=== PATIENT | female | born 1960 ===

== ENCOUNTER 2018-05-10 20:40 | Inpatient (IN) | payer OTHER ==
[2018-05-10] MEDS ORDERED: Sodium Chloride 0.9% 1,000 ML IV STA (22:01)
[2018-05-10] MEDS ORDERED: Iohexol 240 (50 ml) PO ONE (22:01)
--- NOTE | 2018-05-10 22:03 | ED PDOC ---
HPI: Abdomen Time Seen by Provider: 05/10/18 20:58 Chief Complaint (Nursing): Abdominal Pain Chief Complaint (Provider): Abdominal Pain History Per: Patient History/Exam Limitations: no limitations Onset/Duration Of Symptoms: Days (x4) Associated Symptoms: Nausea. denies: Fever, Vomiting, Diarrhea Additional Complaint(s): 58 year old female presents to the ED complaining of abdominal pain which began on Monday. Patient rates pain an 8/10. She reports she was hospitalized before for pain in the same area and was given medications and discharged. She reports having nausea and denies fever, vomiting, and diarrhea. PMD: Dr. Milner Past Medical History Reviewed: Historical Data, Nursing Documentation, Vital Signs Vital Signs: Last Vital Signs Temp 98.9 F 05/10/18 21:05 Pulse 93 H 05/10/18 21:05 Resp 18 05/10/18 21:05 BP 137/81 05/10/18 21:05 Pulse Ox 98 05/10/18 21:05 - Medical History PMH: Asthma Other PMH: Glaucoma - Surgical History Surgical History: Hernia Repair, Other surgeries: Hysterectomy; tendonitis surgery - Family History Family History: States: Unknown Family Hx - Social History Current smoker - smoking cessation education provided: No Alcohol: None Drugs: Denies - Immunization History Hx Tetanus Toxoid Vaccination: Yes Hx Influenza Vaccination: Yes Hx Pneumococcal Vaccination: Yes - Home Medications Home Medications: Ambulatory Orders Medication Instructions Recorded Budesonide/Formoterol Fumarate 1 aer IH DAILY 10/19/17 [Symbicort 160-4.5 Mcg Inhaler] Fluticasone/Vilanterol [Breo 1 each IH DAILY 10/19/17 Ellipta 200-25 Mcg INH] Proventil Hfa 1 inh INH Q6H 10/19/17 Cetirizine HCl [Zyrtec] 10 mg PO DAILY 10/31/17 Montelukast Sodium [Singulair] 10 mg PO DAILY 10/31/17 Ciprofloxacin [Cipro] 500 mg PO Q12 14 Days #28 tab 05/14/18 Isoniazid [Niazid] 300 mg PO DAILY tab 05/14/18 Lactobacillus Acidophilus 1 each PO DAILY #14 capsule 05/14/18 [Acidophilus Lactobacilli] Pyridoxine [Vitamin B6 50 mg Tab] 50 mg PO DAILY tab 05/14/18 metroNIDAZOLE [Flagyl] 500 mg PO Q12 14 Days #28 tab 05/14/18 - Allergies Allergies/Adverse Reactions: Allergies Allergy/AdvReac Type Severity Reaction Status Date / Time No Known Allergies Allergy Verified 05/10/18 21:04 Review of Systems ROS Statement: Except As Marked, All Systems Reviewed And Found Negative Constitutional: Negative for: Fever Gastrointestinal: Positive for: Nausea, Abdominal Pain. Negative for: Vomiting, Diarrhea Physical Exam - Reviewed Nursing Documentation Reviewed: Yes Vital Signs Reviewed: Yes - Physical Exam Appears: Positive for: In Acute Distress (Painful distress) Head Exam: Positive for: ATRAUMATIC, NORMOCEPHALIC Skin: Positive for: Normal Color, Warm, Dry Eye Exam: Positive for: Normal appearance ENT: Positive for: Normal ENT Inspection Neck: Positive for: Normal, Painless ROM Cardiovascular/Chest: Positive for: Regular Rate, Rhythm Respiratory: Positive for: Normal Breath Sounds. Negative for: Wheezing, Respiratory Distress Gastrointestinal/Abdominal: Positive for: Tenderness (LLQ), Guarding Extremity: Positive for: Normal ROM Neurological/Psych: Positive for: Awake, Alert, Normal Tone - Laboratory Results Result Diagrams: 05/14/18 06:50 05/14/18 06:50 - ECG O2 Sat by Pulse Oximetry: 98 (RA) Pulse Ox Interpretation: Normal Medical Decision Making Medical Decision Making: Initial Impression: r/o diverticulitis, electrolyte abnormality, UTI Initial Plan: --CT abd/pelvis --CMP --CBC --Morphine 4mg IV --Sodium chloride 1000mL IV --Omnipaque 50mL PO --Zofran 4mg IV --Urine culture --Urinalysis 01:49 CT abd/pelvis COMMENTS: Uncomplicated acute diverticulitis of the proximal sigmoid colon without perforation or abscess formation. Surrounding prominent phlegmonous changes and free fluid without drainable collection. Mild constipation. Prior hysterectomy. Bilateral fat containing inguinal hernias without incarceration. The liver is of uniform attenuation without mass or defect. There is no intra or extrahepatic biliary ductal dilatation. The spleen is normal. The gallbladder is within normal limits. The pancreas is of normal contour and attenuation characteristics. There is no evidence of adrenal mass. Both kidneys demonstrate prompt and equal nephrograms. The kidneys are normal in size, shape and configuration. There is no evidence of renal or ureteral mass. No renal or ureteral calculi are identified. There is no hydroureter or hydronephrosis. No evidence for appendicitis. There is no small bowel wall thickening. No evidence for small or large bowel obstruction. There is no evidence of intrinsic or extrinsic bladder mass. Images of the lung bases show no evidence of pleural or parenchymal mass. There are no pleural effusions. The bony structures are free of lytic or blastic lesions. IMPRESSION: Uncomplicated acute diverticulitis of the proximal sigmoid colon without perforation or abscess formation. Surrounding prominent phlegmonous changes and free fluid without drainable collection. Mild constipation. Prior hysterectomy. Bilateral fat containing inguinal hernias without incarceration. 03:50 Patient will be admitted to the hospitalist for diverticulitis. Spoke to Dr. House who accepted. abx ordered pt aware gi, surgery consults Scribe Attestation: Documented by Daquan Hill acting as a scribe for Víctor Ochoa MD. Provider Scribe Attestation: All medical record entries made by the Scribe were at my direction and personally dictated by me. I have reviewed the chart and agree that the record accurately reflects my personal performance of the history, physical exam, medical decision making, and the department course for this patient. I have also personally directed, reviewed, and agree with the discharge instructions and disposition. Disposition - Clinical Impression Clinical Impression: Diverticulitis large intestine - Patient ED Disposition Is Patient to be Admitted: Yes Counseled Patient/Family Regarding: Studies Performed, Diagnosis - Disposition Disposition Time: 03:45 Condition: STABLE
[2018-05-10] MEDS ORDERED: Iohexol 240 (50 ml) ONE (22:27)
[2018-05-10] MEDS ORDERED: Morphine 4 MG/ML VIAL ONE (22:27)
[2018-05-10 22:53] LABS: BASO % 0.2 % (0.0-2.0); EOS % 0.6 % (0.0-4.0); HEMOGLOBIN 13.8 g/dL (12.0-16.0); LYMPH # 2.6 K/uL (1.0-4.3); MEAN CELL VOLUME 91.1 fl (81.0-99.0); MEAN CORPUSCULAR HEMOGLOBIN 29.8 pg (27.0-31.0); MEAN CORPUSCULAR HGB CONC 32.7 g/dL (33.0-37.0); MEAN PLATELET VOLUME 8.9 fl (7.2-11.7); MONO # 0.7 K/uL (0.0-0.8); MONO % 8.3 % (0.0-10.0); NEUT # 4.5 K/uL (1.8-7.0); NEUT % 57.9 % (50.0-75.0); RBC 4.62 Mil/uL (3.80-5.20); RED CELL DISTRIBUTION WIDTH 13.7 % (11.5-14.5); WHITE BLOOD COUNT 7.8 K/uL (4.8-10.8)
[2018-05-10 23:09] LABS: ALB/GLOB RATIO 1.3 (1.0-2.1); ALBUMIN 4.4 g/dL (3.5-5.0); ALT/SGPT 41 U/L (9-52); AST/SGOT 44 U/L (14-36); BLOOD UREA NITROGEN 16 mg/dl (7-17); CALCIUM 9.2 mg/dL (8.4-10.2); GFR NON-AFRICAN AMERICAN > 60
[2018-05-11] MEDS ORDERED: Sodium Chloride 0.9% 50 ML IV ONE (00:29)
[2018-05-11] MEDS ORDERED: Iohexol 300 100 ML IJ ONE (00:30)
[2018-05-11 01:14] LABS: SQUAMOUS EPITHIAL 2 /hpf (0-5); URINE BACTERIA OCC (<OCC); URINE BILIRUBIN NEGATIVE (NEGATIVE); URINE BLOOD NEGATIVE (NEGATIVE); URINE CLARITY CLEAR (Clear); URINE COLOR STRAW (YELLOW); URINE GLUCOSE (UA) NEG (NEGATIVE); URINE LEUKOCYTE ESTERASE SMALL Leu/uL (Negative); URINE PROTEIN NEGATIVE (NEGATIVE); URINE UROBILINOGEN 0.2-1.0 mg/dL (0.2-1.0)
[2018-05-11] MEDS ORDERED: Morphine 4 MG/ML VIAL IV ONE (02:31)
[2018-05-11] MEDS ORDERED: Morphine 4 MG/ML VIAL ONE (02:39)
[2018-05-11] MEDS ORDERED: Piperacillin/Tazobact 4.5 GM in Sodium Chloride 0.9% 100 ML IVPB STA (03:49)
--- NOTE | 2018-05-11 04:38 | CP.PCM.HP ---
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 Patient reports LLQ abdominal pain started 5 days ago progressively worse for last 2 days. Patient reports pain as constant, 8/10, radiates to upper abdomen and back, worse with walking/body movement associated with nausea, subjective fever and chills that started today. Patient reports she had colonoscopy done in [place] about a year ago and states colonoscopy report was normal. Denies any hx similar symptoms in the past. Patient also reports dysuria x 5 days. Denies any constipation, diarrhea, dysuria or dizziness. Denies any chest pain, cough o r dyspnea. ROS: All 12 systems reviewed and negative except as mentioned in HPI PMD: [facility] PMHx: asthma, allergic rhinitis, positive PPD (on INH), GERD, HLD Surgical hx: hysterectomy, hernia repair, and Right shoulder tendon repair Social hx: Denies smoking cigarettes, drinking EtOH or using drugs Family hx: Father: pancreatic CA at age 88, Mother: heart attack at age 83 Allergies: NKDA Medications: reviewed Present on Admission - Present on Admission Any Indicators Present on Admission: No Review of Systems - Review of Systems Review of Systems: ROS: All 12 systems reviewed and negative except as mentioned in HPI Past Patient History - Past Social History Alcohol: None Drugs: Denies - PULMONARY Hx Asthma: Yes - HEENT Hx Glaucoma: Yes - PSYCHIATRIC Hx Substance Use: No - SURGICAL HISTORY Hx Section: Yes (X3) Hx Herniorrhaphy: Yes Hx Hysterectomy: Yes Hx Orthopedic Surgery: Yes (RT SHOULDER) - ANESTHESIA Hx Anesthesia: Yes Hx Anesthesia Reactions: No Meds Allergies/Adverse Reactions: Allergies Allergy/AdvReac Type Severity Reaction Status Date / Time No Known Allergies Allergy Verified 05/10/18 21:04 Physical Exam - Constitutional Appears: Non-toxic Additional comments: mild distress due to pain - Head Exam Head Exam: NORMAL INSPECTION - Eye Exam Eye Exam: Normal appearance - ENT Exam ENT Exam: Mucous Membranes Moist - Neck Exam Neck exam: Positive for: Normal Inspection - Respiratory Exam Respiratory Exam: Clear to Auscultation Bilateral, NORMAL BREATHING PATTERN. absent: Rhonchi, Wheezes - Cardiovascular Exam Cardiovascular Exam: REGULAR RHYTHM, +S1, +S2 - GI/Abdominal Exam GI & Abdominal Exam: Normal Bowel Sounds, Soft. absent: Distended, Rigid Additional comments: Moderate localized tenderness in LLQ with +guarding and rebound tenderness. Vertical lower abdominal mid incision scar - Extremities Exam Extremities exam: Positive for: normal inspection. Negative for: calf tenderness - Back Exam Back exam: NORMAL INSPECTION. absent: CVA tenderness (L), CVA tenderness (R) - Neurological Exam Neurological exam: Alert, Oriented x3 - Psychiatric Exam Psychiatric exam: Anxious - Skin Skin Exam: Normal Color Results - Vital Signs Recent Vital Signs: Last Vital Signs Temp 98.9 F 05/10/18 21:05 Pulse 93 H 05/10/18 21:05 Resp 18 05/10/18 21:05 BP 137/81 05/10/18 21:05 Pulse Ox 98 05/11/18 04:04 - Labs Result Diagrams: 05/10/18 22:44 05/10/18 22:44 Labs: Laboratory Results - last 24 hr 05/10/18 05/10/18 05/11/18 22:44 22:44 00:40 WBC 7.8 RBC 4.62 Hgb 13.8 Hct 42.1 MCV 91.1 MCH 29.8 MCHC 32.7 L RDW 13.7 Plt Count 196 MPV 8.9 Neut % (Auto) 57.9 Lymph % (Auto) 33.0 [place] % (Auto) 8.3 Eos % (Auto) 0.6 Baso % (Auto) 0.2 Neut # (Auto) 4.5 Lymph # (Auto) 2.6 [place] # (Auto) 0.7 Eos # (Auto) 0.0 Baso # (Auto) 0.0 Sodium 141 Potassium 4.0 Chloride 101 Carbon Dioxide 29 Anion Gap 15 BUN 16 Creatinine 0.7 Est GFR ( Amer) > 60 Est GFR (Non-Af Amer) > 60 Random Glucose 111 H Calcium 9.2 Total Bilirubin 0.3 AST 44 H D ALT 41 Alkaline Phosphatase 82 Total Protein 7.7 Albumin 4.4 Globulin 3.3 Albumin/Globulin Ratio 1.3 Urine Color Straw Urine Clarity Clear Urine pH 8.0 Ur Specific [place] 1.006 Urine Protein Negative Urine Glucose (UA) Neg Urine Ketones Negative Urine Blood Negative Urine Nitrate Negative Urine Bilirubin Negative Urine Urobilinogen 0.2-1.0 Ur Leukocyte Esterase Small Urine RBC (Auto) 1 Urine Microscopic WBC 6 H Ur Squamous Epith Cells 2 Urine Bacteria Occ H Assessment & Plan - Assessment and Plan (Free Text) Assessment: 58 year old male with PMHx of asthma, allergic rhinitis, 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 Patient reports LLQ abdominal pain started 5 days ago progressively worse last 2 days. Patient reports pain as constant, 8/10, radiates to upper abdomen and back, worse with walking/body movement associated with nausea, subjective fever and chills that started today. In the ED, CT abdomen and pelvis shows uncomplicated acute diverticulitis of the proximal sigmoid colon without perforation or abscess formation. Surrounding prominent phlegmonous changes and free fluid without drainable collection. Patient is admitted for management of diverticulitis. Plan: Acute diverticulitis with phlegmonous changes -Afebrile with stable vitals -Wbc 7.8 -s/p NS 1 L and Zosyn 4.5 mg in ED -General surgery consultDr. Musaf/u recs -GI consult Dr. Latham f/u recs -c/w Zosyn 3.375 mg q 6 hr -NPO -anti-emetics -Pain management with morphine 2 mg and 4 mg -start LR @ 125 cc/hr -f/u labs Mild intermittent asthma -c/w symbicort -duoneb q4h prn Hx positive PPD -CXR on 01/23/18 : no acute cardiopulmonary disease -Will resume INH 300 mg po daily with pyridoxine 50 mg daily when diet is advanced DVT prophylaxis -Lovenox 40 mg sc daily Patient seen, examined and plan discussed with Dr. Harsh Simpson, PGY-2 <Curtis House - Last Filed: 05/11/18 07:37> Results - Vital Signs Recent Vital Signs: Last Vital Signs Temp 98.9 F 05/11/18 06:33 Pulse 74 05/11/18 06:33 Resp 17 05/11/18 06:33 BP 99/55 L 05/11/18 06:33 Pulse Ox 98 05/11/18 05:05 - Labs Result Diagrams: 05/10/18 22:44 05/10/18 22:44 Labs: Laboratory Results - last 24 hr 05/10/18 05/10/18 05/11/18 22:44 22:44 00:40 WBC 7.8 RBC 4.62 Hgb 13.8 Hct 42.1 MCV 91.1 MCH 29.8 MCHC 32.7 L RDW 13.7 Plt Count 196 MPV 8.9 Neut % (Auto) 57.9 Lymph % (Auto) 33.0 [place] % (Auto) 8.3 Eos % (Auto) 0.6 Baso % (Auto) 0.2 Neut # (Auto) 4.5 Lymph # (Auto) 2.6 [place] # (Auto) 0.7 Eos # (Auto) 0.0 Baso # (Auto) 0.0 Sodium 141 Potassium 4.0 Chloride 101 Carbon Dioxide 29 Anion Gap 15 BUN 16 Creatinine 0.7 Est GFR ( Amer) > 60 Est GFR (Non-Af Amer) > 60 Random Glucose 111 H Calcium 9.2 Total Bilirubin 0.3 AST 44 H D ALT 41 Alkaline Phosphatase 82 Total Protein 7.7 Albumin 4.4 Globulin 3.3 Albumin/Globulin Ratio 1.3 Urine Color Straw Urine Clarity Clear Urine pH 8.0 Ur Specific [place] 1.006 Urine Protein Negative Urine Glucose (UA) Neg Urine Ketones Negative Urine Blood Negative Urine Nitrate Negative Urine Bilirubin Negative Urine Urobilinogen 0.2-1.0 Ur Leukocyte Esterase Small Urine RBC (Auto) 1 Urine Microscopic WBC 6 H Ur Squamous Epith Cells 2 Urine Bacteria Occ H Attending/Attestation - Attestation I have personally seen and examined this patient.: Yes I have fully participated in the care of the patient.: Yes I have reviewed all pertinent clinical information: Yes Notes (Text): 05/11/18 07:32 I saw, examined and discussed this patient with Dr Simpson. I agree with the assessment and plan outlined. This is a 58 years old female who comes with left lower quadrant abdominal pain, shown on CT of abdomen/pelvis to be Acute Diverticulitis. She will be treated conservatively with nothing by mouth, Pain management, IV Fluids, Antibiotic Zosyn. Consult Gastroenterology and Surgery. Curtis House MD 05/11/18 07:36
[2018-05-11] MEDS ORDERED: Morphine 4 MG/ML VIAL IVP PRN (04:43)
[2018-05-11] MEDS ORDERED: Albuterol-Ipratrop 3 mg / 0.5 (3 ml) UD INH PRN (04:47)
[2018-05-11] MEDS: Lactated Ringer's 1,000 ML IV SCH ×3 (05:00→20:16)
[2018-05-11] MEDS: Fluticasone-Salmeterol 250-50mcg Diskus IH SCH ×2 (08:45→20:14)
[2018-05-11] MEDS ORDERED: Patient's Own Med (Budesonide/Formoterol Fumarate [Symbicort 160-4.5 Mcg Inhaler] 1 AER) IH SCH (09:00)
--- NOTE | 2018-05-11 09:37 | CP.PCM.PN ---
Subjective - Date & Time of Evaluation Date of Evaluation: 05/11/18 Time of Evaluation: 09:05 - Subjective Subjective: Patient seen and examined at bedside this morning, in NAD. Patient c/o LLQ abdominal pain reaching up to 8/10 with some radiation to the back, tenderness to touch on the area, also c/o some nausea, denies BELLE or fever. Pt endorses tenesmus, had last BM yesterday. Overall patient reports mild improvement from yesterday and states her pain is getting controlled when she takes medication. Objective - Vital Signs/Intake and Output Vital Signs (last 24 hours): Temp Pulse Resp BP Pulse Ox 98.1 F 71 18 101/65 96 05/11/18 08:17 05/11/18 08:17 05/11/18 08:17 05/11/18 08:17 05/11/18 08:17 - Medications Medications: Current Medications Albuterol/Ipratropium (Duoneb 3 Mg/0.5 Mg (3 Ml) Ud) 3 ml INH RQ4 PRN PRN Reason: Shortness of Breath Enoxaparin Sodium (Lovenox) 40 mg SC DAILY SAMANTHA; Protocol Lactated Ringer's (Lactated Ringer's) 1,000 mls @ 125 mls/hr IV .Q8H SAMANTHA Last Admin: 05/11/18 05:00 Dose: 125 mls/hr Piperacillin Sod/Tazobactam (Sod 3.375 gm/ Sodium Chloride) 100 mls @ 100 mls/hr IVPB Q6 SAMANTHA; Protocol Morphine Sulfate (Morphine) 2 mg IVP Q4 PRN PRN Reason: Pain, moderate (4-7) Morphine Sulfate (Morphine) 4 mg IVP Q4 PRN PRN Reason: Pain, severe (8-10) Last Admin: 05/11/18 08:44 Dose: 4 mg Ondansetron HCl (Zofran Inj) 4 mg IVP Q6 PRN PRN Reason: Nausea/Vomiting Last Admin: 05/11/18 08:44 Dose: 4 mg Fluticasone/Salmeterol (Advair Diskus 250/50) 1 puff IH Q12 SAMANTHA Last Admin: 05/11/18 08:45 Dose: 1 puff - Labs Labs: 05/10/18 22:44 05/10/18 22:44 - Constitutional Appears: No Acute Distress - Head Exam Head Exam: ATRAUMATIC, NORMOCEPHALIC - Eye Exam Eye Exam: EOMI - ENT Exam ENT Exam: Mucous Membranes Moist - Respiratory Exam Respiratory Exam: Clear to Ausculation Bilateral - Cardiovascular Exam Cardiovascular Exam: REGULAR RHYTHM - GI/Abdominal Exam GI & Abdominal Exam: Guarding, Soft, Tenderness, Normal Bowel Sounds Additional comments: tenderness with some guarding to palpation of LLQ - Neurological Exam Neurological Exam: Alert, Oriented x3 - Psychiatric Exam Psychiatric exam: Normal Affect - Skin Skin Exam: Normal Color, Warm Assessment and Plan - Assessment and Plan (Free Text) Assessment: 58 year old female with PMH of asthma, allergic rhinitis, 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 Patient reports LLQ abdominal pain started 5 days ago progressively worse in the last 2 days. Patient reports pain as constant, 8/10, radiates to the back, worse with walking/body movement associated with nausea, and chills that started today. In the ED, CT abdomen and pelvis shows uncomplicated acute diverticulitis of the proximal sigmoid colon without perforation or abscess formation. Surrounding prominent phlegmonous changes and free fluid without drainable collection. Patient is admitted for management of diverticulitis. Plan: Acute diverticulitis with phlegmonous changes -Afebrile with stable vitals -Wbc 7.8 -s/p NS 1 L and Zosyn 4.5 mg in ED -General surgery consultDr. Musaf/u recs -GI consult Dr. Latham f/u recs -c/w Zosyn 3.375 mg q 6 hr -NPO -anti-emetics -Pain management with morphine 2 mg and 4 mg -start LR @ 125 cc/hr -f/u labs Mild intermittent asthma -c/w symbicort -duoneb q4h prn Hx positive PPD -CXR on 01/23/18 : no acute cardiopulmonary disease -Will resume INH 300 mg po daily with pyridoxine 50 mg daily when diet is advanced DVT prophylaxis -Lovenox 40 mg sc daily
--- NOTE | 2018-05-11 10:04 | CP.PCM.CON ---
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 Patient reports pain started 5 days ago. She states that it progressively worsened for last 2 days. She states that she may have had pain like this in past but is unsure. She rates pain as severe. She describes pain as constant and sharp locates in LLQ with radiation to left flank. Admits to associated nausea and subjective fever/chills but denies vomiting or diarrhea. Walking and movement aggravates her symptoms while nothing specifically alleviates them. Patient reports she had a normal colonoscopy done in [place] about a year ago. Patient also admits dysuria. Denies any chest pain, cough, SOB, hematochezia, melena, constipation. PMD: [facility] PMH: asthma, allergic rhinitis, positive PPD (on INH), GERD, HLD PSH: KISHAN with BSO, hernia repair, x 3 and Right shoulder tendon repair Social: Denies tobbaco/EtOH/illicit drug use FH: Father: pancreatic CA at age 88, Mother: heart attack at age 83 Allergies: NKDA Review of Systems - Review of Systems All systems: reviewed and no additional remarkable complaints except (as per HPI) Past Patient History - Past Social History Alcohol: None Drugs: Denies - PULMONARY Hx Asthma: Yes - HEENT Hx Glaucoma: Yes - PSYCHIATRIC Hx Substance Use: No - SURGICAL HISTORY Hx Section: Yes (X3) Hx Herniorrhaphy: Yes Hx Hysterectomy: Yes Hx Orthopedic Surgery: Yes (RT SHOULDER) - ANESTHESIA Hx Anesthesia: Yes Hx Anesthesia Reactions: No Meds Allergies/Adverse Reactions: Allergies Allergy/AdvReac Type Severity Reaction Status Date / Time No Known Allergies Allergy Verified 05/10/18 21:04 - Medications Medications: Current Medications Albuterol/Ipratropium (Duoneb 3 Mg/0.5 Mg (3 Ml) Ud) 3 ml INH RQ4 PRN PRN Reason: Shortness of Breath Enoxaparin Sodium (Lovenox) 40 mg SC DAILY SAMANTHA; Protocol Lactated Ringer's (Lactated Ringer's) 1,000 mls @ 125 mls/hr IV .Q8H SAMANTHA Last Admin: 05/11/18 05:00 Dose: 125 mls/hr Piperacillin Sod/Tazobactam (Sod 3.375 gm/ Sodium Chloride) 100 mls @ 100 mls/hr IVPB Q6 SAMANTHA; Protocol Morphine Sulfate (Morphine) 2 mg IVP Q4 PRN PRN Reason: Pain, moderate (4-7) Morphine Sulfate (Morphine) 4 mg IVP Q4 PRN PRN Reason: Pain, severe (8-10) Last Admin: 05/11/18 08:44 Dose: 4 mg Ondansetron HCl (Zofran Inj) 4 mg IVP Q6 PRN PRN Reason: Nausea/Vomiting Last Admin: 05/11/18 08:44 Dose: 4 mg Fluticasone/Salmeterol (Advair Diskus 250/50) 1 puff IH Q12 SAMANTHA Last Admin: 05/11/18 08:45 Dose: 1 puff Physical Exam - Constitutional Appears: Non-toxic, No Acute Distress - Head Exam Head Exam: ATRAUMATIC, NORMOCEPHALIC - Eye Exam Eye Exam: EOMI, Normal appearance Pupil Exam: PERRL - ENT Exam ENT Exam: Mucous Membranes Moist - Neck Exam Neck exam: Positive for: Full Rom - Respiratory Exam Respiratory Exam: NORMAL BREATHING PATTERN - Cardiovascular Exam Cardiovascular Exam: REGULAR RHYTHM - GI/Abdominal Exam GI & Abdominal Exam: Normal Bowel Sounds, Soft, Tenderness (LLQ, moderate to severe). absent: Distended, Firm, Guarding, Hernia, Rebound, Rigid Additional comments: well healed infraumbilical midline scar - Rectal Exam Rectal Exam: Deferred - Extremities Exam Extremities exam: Positive for: normal capillary refill, pedal pulses present. Negative for: calf tenderness - Back Exam Back exam: absent: CVA tenderness (L), CVA tenderness (R) - Neurological Exam Neurological exam: Alert, Normal Gait, Oriented x3 - Psychiatric Exam Psychiatric exam: Normal Affect, Normal Mood - Skin Skin Exam: Dry, Intact, Normal Color, Warm Results - Vital Signs Recent Vital Signs: Last Vital Signs Temp 98.1 F 05/11/18 08:17 Pulse 71 05/11/18 08:17 Resp 18 05/11/18 08:17 BP 101/65 05/11/18 08:17 Pulse Ox 96 05/11/18 08:17 - Labs Result Diagrams: 05/10/18 22:44 05/10/18 22:44 Labs: Laboratory Results - last 24 hr 05/10/18 05/10/18 05/11/18 22:44 22:44 00:40 WBC 7.8 RBC 4.62 Hgb 13.8 Hct 42.1 MCV 91.1 MCH 29.8 MCHC 32.7 L RDW 13.7 Plt Count 196 MPV 8.9 Neut % (Auto) 57.9 Lymph % (Auto) 33.0 [place] % (Auto) 8.3 Eos % (Auto) 0.6 Baso % (Auto) 0.2 Neut # (Auto) 4.5 Lymph # (Auto) 2.6 [place] # (Auto) 0.7 Eos # (Auto) 0.0 Baso # (Auto) 0.0 Sodium 141 Potassium 4.0 Chloride 101 Carbon Dioxide 29 Anion Gap 15 BUN 16 Creatinine 0.7 Est GFR ( Amer) > 60 Est GFR (Non-Af Amer) > 60 Random Glucose 111 H Calcium 9.2 Total Bilirubin 0.3 AST 44 H D ALT 41 Alkaline Phosphatase 82 Total Protein 7.7 Albumin 4.4 Globulin 3.3 Albumin/Globulin Ratio 1.3 Urine Color Straw Urine Clarity Clear Urine pH 8.0 Ur Specific [place] 1.006 Urine Protein Negative Urine Glucose (UA) Neg Urine Ketones Negative Urine Blood Negative Urine Nitrate Negative Urine Bilirubin Negative Urine Urobilinogen 0.2-1.0 Ur Leukocyte Esterase Small Urine RBC (Auto) 1 Urine Microscopic WBC 6 H Ur Squamous Epith Cells 2 Urine Bacteria Occ H - Imaging and Cardiology CT scan - abdomen Status: Image reviewed by me, Report reviewed by me Additional comment: CT abd/pelvis Assessment & Plan - Assessment and Plan (Free Text) Assessment: 58 F with PMH of asthma, allergic rhinnitis, Latent TB on INH until June and glaucoma presents with sigmoid diverticulitis Plan: -NPO -IVF -IV ABX -Analgesics/Anti-emetics PRN -Serial abd exams -Strict I's & O's -Monitor vitals -Discussed with Dr. Musa - Date & Time Date: 05/11/18 Time: 10:02
[2018-05-11] MEDS: Piperacillin/Tazobact 3.375 GM in Sodium Chloride 0.9% 100 ML IVPB SCH ×3 (10:50→21:11)
--- NOTE | 2018-05-11 12:06 | CT ---
Date of service: 05/11/2018 PROCEDURE: CT Abdomen and Pelvis with contrast HISTORY: Left lower quadrant abdominal pain. COMPARISON: None. TECHNIQUE: Intravenous contrast dose: 90 cc Omnipaque 300. Radiation dose: Total exam DLP = 325.27 mGy-cm. This CT exam was performed using one or more of the following dose reduction techniques: Automated exposure control, adjustment of the mA and/or kV according to patient size, and/or use of iterative reconstruction technique. FINDINGS: LOWER THORAX: Unremarkable. LIVER: Unremarkable. No gross lesion or ductal dilatation. GALLBLADDER AND BILE DUCTS: Unremarkable. PANCREAS: Unremarkable. No gross lesion or ductal dilatation. SPLEEN: Unremarkable. ADRENALS: Unremarkable. No mass. KIDNEYS AND URETERS: Unremarkable. No hydronephrosis. No solid mass. VASCULATURE: Unremarkable. No aortic aneurysm. No atherosclerotic calcification or mural plaque present. BOWEL: Sigmoid diverticulitis, acute. Micro perforations are present. No drainable collection, free air or free fluid noted. Extensive diverticular disease identified proximal and distal to the sigmoid diverticulitis. APPENDIX: Normal appendix. PERITONEUM: Unremarkable. No free fluid. No free air. LYMPH NODES: Unremarkable. No enlarged lymph nodes. BLADDER: Unremarkable. REPRODUCTIVE: Unremarkable. BONES: No acute fracture. OTHER FINDINGS: None. IMPRESSION: Acute sigmoid diverticulitis. Micro perforations identified. No free air, free fluid, loculated fluid or drainable collection. Concordant results (preliminary interpretation) provided by [facility]. Procedure Completed: 00:45. Preliminary Report: Interpreted and electronically signed: 01:45. Final Interpretation: 11:59.
--- NOTE | 2018-05-11 14:48 | CP.PCM.CON ---
History of Present Illness - History of Present Illness History of Present Illness: 58 yo female presenting to ER with 3 days of intense abdominal pain severity about 8/10. Review of Systems - Constitutional Constitutional: absent: Chills - EENT Eyes: absent: Blurred Vision Nose/Mouth/Throat: absent: Epistaxis - Cardiovascular Cardiovascular: absent: Chest Pain - Respiratory Respiratory: absent: Dyspnea - Gastrointestinal Gastrointestinal: As Per HPI - Genitourinary Genitourinary: absent: Change in Urinary Stream Past Patient History - Past Social History Alcohol: None Drugs: Denies - PULMONARY Hx Asthma: Yes - HEENT Hx Glaucoma: Yes - PSYCHIATRIC Hx Substance Use: No - SURGICAL HISTORY Hx Section: Yes (X3) Hx Herniorrhaphy: Yes Hx Hysterectomy: Yes Hx Orthopedic Surgery: Yes (RT SHOULDER) - ANESTHESIA Hx Anesthesia: Yes Hx Anesthesia Reactions: No Meds Allergies/Adverse Reactions: Allergies Allergy/AdvReac Type Severity Reaction Status Date / Time No Known Allergies Allergy Verified 05/10/18 21:04 - Medications Medications: Current Medications Albuterol/Ipratropium (Duoneb 3 Mg/0.5 Mg (3 Ml) Ud) 3 ml INH RQ4 PRN PRN Reason: Shortness of Breath Enoxaparin Sodium (Lovenox) 40 mg SC DAILY [facility]; Protocol Lactated Ringer's (Lactated Ringer's) 1,000 mls @ 125 mls/hr IV .Q8H [facility] Last Admin: 05/11/18 05:00 Dose: 125 mls/hr Piperacillin Sod/Tazobactam (Sod 3.375 gm/ Sodium Chloride) 100 mls @ 100 mls/hr IVPB Q6 [facility]; Protocol Last Admin: 05/11/18 10:50 Dose: 100 mls/hr Morphine Sulfate (Morphine) 2 mg IVP Q4 PRN PRN Reason: Pain, moderate (4-7) Morphine Sulfate (Morphine) 4 mg IVP Q4 PRN PRN Reason: Pain, severe (8-10) Last Admin: 05/11/18 08:44 Dose: 4 mg Ondansetron HCl (Zofran Inj) 4 mg IVP Q6 PRN PRN Reason: Nausea/Vomiting Last Admin: 05/11/18 08:44 Dose: 4 mg Pantoprazole Sodium (Protonix Inj) 40 mg IVP DAILY [facility] Last Admin: 05/11/18 12:57 Dose: 40 mg Fluticasone/Salmeterol (Advair Diskus 250/50) 1 puff IH Q12 [facility] Last Admin: 05/11/18 08:45 Dose: 1 puff Physical Exam - Constitutional Appears: No Acute Distress - Head Exam Head Exam: ATRAUMATIC - Eye Exam Eye Exam: Normal appearance - ENT Exam ENT Exam: Mucous Membranes Moist - Neck Exam Neck exam: Positive for: Normal Inspection - Respiratory Exam Respiratory Exam: Clear to Auscultation Bilateral - Cardiovascular Exam Cardiovascular Exam: REGULAR RHYTHM, +S1, +S2 - GI/Abdominal Exam GI & Abdominal Exam: Normal Bowel Sounds, Soft, Tenderness Additional comments: LLQ point tenderness Results - Vital Signs Recent Vital Signs: Last Vital Signs Temp 98.1 F 05/11/18 08:17 Pulse 71 05/11/18 08:17 Resp 18 05/11/18 08:17 BP 101/65 05/11/18 08:17 Pulse Ox 96 05/11/18 08:17 - Labs Result Diagrams: 05/10/18 22:44 05/10/18 22:44 Labs: Laboratory Results - last 24 hr 05/10/18 05/10/18 05/11/18 22:44 22:44 00:40 WBC 7.8 RBC 4.62 Hgb 13.8 Hct 42.1 MCV 91.1 MCH 29.8 MCHC 32.7 L RDW 13.7 Plt Count 196 MPV 8.9 Neut % (Auto) 57.9 Lymph % (Auto) 33.0 Glynn % (Auto) 8.3 Eos % (Auto) 0.6 Baso % (Auto) 0.2 Neut # (Auto) 4.5 Lymph # (Auto) 2.6 Glynn # (Auto) 0.7 Eos # (Auto) 0.0 Baso # (Auto) 0.0 Sodium 141 Potassium 4.0 Chloride 101 Carbon Dioxide 29 Anion Gap 15 BUN 16 Creatinine 0.7 Est GFR ( Amer) > 60 Est GFR (Non-Af Amer) > 60 Random Glucose 111 H Calcium 9.2 Total Bilirubin 0.3 AST 44 H D ALT 41 Alkaline Phosphatase 82 Total Protein 7.7 Albumin 4.4 Globulin 3.3 Albumin/Globulin Ratio 1.3 Urine Color Straw Urine Clarity Clear Urine pH 8.[address] 1.006 Urine Protein Negative Urine Glucose (UA) Neg Urine Ketones Negative Urine Blood Negative Urine Nitrate Negative Urine Bilirubin Negative Urine Urobilinogen 0.2-1.0 Ur Leukocyte Esterase Small Urine RBC (Auto) 1 Urine Microscopic WBC 6 H Ur Squamous Epith Cells 2 Urine Bacteria Occ H - Imaging and Cardiology CT scan - abdomen Status: Image reviewed by me, Report reviewed by me Assessment & Plan (1) Diverticulitis large intestine Assessment and Plan: Sigmoid diverticulitis with microperforation. Surgery is involved. IV fluids and broad spectrum antibiotics. Status: Acute (2) Abdominal pain Status: Acute
[2018-05-11 18:26] VITALS: BMI 22.9
[2018-05-11] MEDS: Enoxaparin 40 mg Syringe SC SCH (21:35)
[2018-05-12] MEDS: Piperacillin/Tazobact 3.375 GM in Sodium Chloride 0.9% 100 ML IVPB SCH ×4 (03:04→21:42)
[2018-05-12] MEDS: Lactated Ringer's 1,000 ML IV SCH ×4 (04:51→21:44)
[2018-05-12 07:01] LABS: BASO % 0.1 % (0.0-2.0); EOS % 0.3 % (0.0-4.0); HEMOGLOBIN 12.2 g/dL (12.0-16.0); LYMPH # 1.6 K/uL (1.0-4.3); LYMPH % 28.5 % (20.0-40.0); MEAN CELL VOLUME 90.5 fl (81.0-99.0); MEAN CORPUSCULAR HEMOGLOBIN 30.4 pg (27.0-31.0); MEAN CORPUSCULAR HGB CONC 33.5 g/dL (33.0-37.0); MEAN PLATELET VOLUME 8.8 fl (7.2-11.7); MONO # 0.5 K/uL (0.0-0.8); MONO % 9.6 % (0.0-10.0); NEUT # 3.4 K/uL (1.8-7.0); NEUT % 61.5 % (50.0-75.0); RBC 4.02 Mil/uL (3.80-5.20); RED CELL DISTRIBUTION WIDTH 13.2 % (11.5-14.5); WHITE BLOOD COUNT 5.6 K/uL (4.8-10.8)
[2018-05-12 07:15] LABS: ALB/GLOB RATIO 1.2 (1.0-2.1); ALBUMIN 3.2 g/dL (3.5-5.0); ALT/SGPT 40 U/L (9-52); AST/SGOT 42 U/L (14-36); BLOOD UREA NITROGEN 12 mg/dl (7-17); CALCIUM 8.7 mg/dL (8.4-10.2); GFR NON-AFRICAN AMERICAN > 60
--- NOTE | 2018-05-12 07:35 | CP.PCM.PN ---
Subjective - Date & Time of Evaluation Date of Evaluation: 05/12/18 Time of Evaluation: 07:25 - Subjective Subjective: General Surgery Note for Dr. Musa Patient seen and examined at bedside. No acute event overnight. Patient still reports moderate LLQ pain. Patient states that she has nausea constantly and had episode of emesis with oral med intake. Patient does not feel like eating due to nausea. She reports flatus and BM yesterday. Denies fever/chills, cp, SOB, diarrhea, constipation, incontinence, urinary symptoms. Objective - Vital Signs/Intake and Output Vital Signs (last 24 hours): Temp Pulse Resp BP Pulse Ox 98.3 F 78 19 102/65 95 05/12/18 00:33 05/12/18 00:33 05/12/18 00:33 05/12/18 00:33 05/12/18 00:33 - Medications Medications: Current Medications Acetaminophen (Tylenol 325mg Tab) 650 mg PO Q6 PRN PRN Reason: Headache Last Admin: 05/11/18 20:40 Dose: 650 mg Albuterol/Ipratropium (Duoneb 3 Mg/0.5 Mg (3 Ml) Ud) 3 ml INH RQ4 PRN PRN Reason: Shortness of Breath Enoxaparin Sodium (Lovenox) 40 mg SC DAILY@2000 [facility]; Protocol Last Admin: 05/11/18 21:35 Dose: 40 mg Lactated Ringer's (Lactated Ringer's) 1,000 mls @ 125 mls/hr IV .Q8H [facility] Last Admin: 05/12/18 04:51 Dose: Not Given Piperacillin Sod/Tazobactam (Sod 3.375 gm/ Sodium Chloride) 100 mls @ 100 mls/hr IVPB Q6 [facility]; Protocol Last Admin: 05/12/18 03:04 Dose: 100 mls/hr Ketorolac Tromethamine (Toradol) 30 mg IVP Q8 PRN PRN Reason: Headache Stop: 05/12/18 23:59 Last Admin: 05/12/18 04:23 Dose: 30 mg Morphine Sulfate (Morphine) 2 mg IVP Q4 PRN PRN Reason: Pain, moderate (4-7) Morphine Sulfate (Morphine) 4 mg IVP Q4 PRN PRN Reason: Pain, severe (8-10) Last Admin: 05/11/18 08:44 Dose: 4 mg Ondansetron HCl (Zofran Inj) 4 mg IVP Q6 PRN PRN Reason: Nausea/Vomiting Last Admin: 05/11/18 21:10 Dose: 4 mg Pantoprazole Sodium (Protonix Inj) 40 mg IVP DAILY [facility] Last Admin: 05/11/18 12:57 Dose: 40 mg Fluticasone/Salmeterol (Advair Diskus 250/50) 1 puff IH Q12 [facility] Last Admin: 05/11/18 20:14 Dose: 1 puff - Labs Labs: 05/12/18 05:20 05/12/18 05:20 - Constitutional Appears: No Acute Distress - Head Exam Head Exam: ATRAUMATIC, NORMOCEPHALIC - Eye Exam Eye Exam: EOMI, Normal appearance Pupil Exam: PERRL - ENT Exam ENT Exam: Mucous Membranes Moist - Respiratory Exam Respiratory Exam: NORMAL BREATHING PATTERN - Cardiovascular Exam Cardiovascular Exam: REGULAR RHYTHM - GI/Abdominal Exam GI & Abdominal Exam: Soft, Tenderness (LLQ, moderate to severe), Normal Bowel Sounds. 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 Musa
[2018-05-12] MEDS: Fluticasone-Salmeterol 250-50mcg Diskus IH SCH ×3 (08:40→20:16)
[2018-05-12] MEDS ORDERED: Magnesium Sulfate 2 gm/50 ml 2 GM/50 ML BAG IVPB ONE (11:01)
--- NOTE | 2018-05-12 11:04 | CP.PCM.PN ---
<Osei Khan - Last Filed: 05/12/18 12:28> Subjective - Date & Time of Evaluation Date of Evaluation: 05/12/18 Time of Evaluation: 08:06 - Subjective Subjective: Patient seen and examined at bedside. No acute event overnight. Complaining of moderate LLQ pain. She states continuos nausea had intermittent episodes of emesis with oral medication intake. She reports flatus and BM yesterday. Denies fever/chills, CP, SOB, diarrhea, constipation, incontinence, urinary symptoms. Objective - Vital Signs/Intake and Output Vital Signs (last 24 hours): Temp Pulse Resp BP Pulse Ox 98.7 F 71 19 111/68 96 05/12/18 08:01 05/12/18 08:01 05/12/18 08:01 05/12/18 08:01 05/12/18 08:01 - Medications Medications: Current Medications Acetaminophen (Tylenol 325mg Tab) 650 mg PO Q6 PRN PRN Reason: Headache Last Admin: 05/12/18 08:39 Dose: 650 mg Albuterol/Ipratropium (Duoneb 3 Mg/0.5 Mg (3 Ml) Ud) 3 ml INH RQ4 PRN PRN Reason: Shortness of Breath Enoxaparin Sodium (Lovenox) 40 mg SC DAILY@2000 [facility]; Protocol Last Admin: 05/11/18 21:35 Dose: 40 mg Lactated Ringer's (Lactated Ringer's) 1,000 mls @ 125 mls/hr IV .Q8H [facility] Last Admin: 05/12/18 04:51 Dose: Not Given Piperacillin Sod/Tazobactam (Sod 3.375 gm/ Sodium Chloride) 100 mls @ 100 mls/hr IVPB Q6 [facility]; Protocol Last Admin: 05/12/18 10:38 Dose: 100 mls/hr Potassium Chloride (Potassium Chloride 10 Meq/100 Ml) 100 mls @ 100 mls/hr IVPB Q1 [facility] Stop: 05/12/18 13:59 Magnesium Sulfate 2 gm/ Sodium (Chloride) 104 mls @ 104 mls/hr IVPB ONCE ONE Stop: 05/12/18 12:00 Ketorolac Tromethamine (Toradol) 30 mg IVP Q8 PRN PRN Reason: Headache Stop: 05/12/18 23:59 Last Admin: 05/12/18 04:23 Dose: 30 mg Morphine Sulfate (Morphine) 2 mg IVP Q4 PRN PRN Reason: Pain, moderate (4-7) Morphine Sulfate (Morphine) 4 mg IVP Q4 PRN PRN Reason: Pain, severe (8-10) Last Admin: 05/11/18 08:44 Dose: 4 mg Ondansetron HCl (Zofran Inj) 4 mg IVP Q6 PRN PRN Reason: Nausea/Vomiting Last Admin: 05/12/18 08:38 Dose: 4 mg Pantoprazole Sodium (Protonix Inj) 40 mg IVP DAILY [facility] Last Admin: 05/12/18 08:39 Dose: 40 mg Fluticasone/Salmeterol (Advair Diskus 250/50) 1 puff IH Q12 [facility] Last Admin: 05/12/18 08:45 Dose: Not Given - Labs Labs: 05/12/18 05:20 05/12/18 05:20 - Constitutional Appears: No Acute Distress - Head Exam Head Exam: NORMAL INSPECTION - Respiratory Exam Respiratory Exam: Clear to Ausculation Bilateral, NORMAL BREATHING PATTERN - Cardiovascular Exam Cardiovascular Exam: REGULAR RHYTHM, +S1, +S2. absent: Tachycardia - GI/Abdominal Exam GI & Abdominal Exam: Soft, Tenderness (LLQ), Normal Bowel Sounds. 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 Patient reports LLQ abdom inal pain started 5 days ago progressively worse in the last 2 days. Patient reports pain as constant, 8/10, radiates to the back, worse with walking/body movement associated with nausea, and chills that started today. In the ED, CT abdomen and pelvis shows uncomplicated acute diverticulitis of the proximal sigmoid colon without perforation or abscess formation. Surrounding prominent phlegmonous changes and free fluid without drainable collection. Patient is admitted for management of diverticulitis. Plan: Acute diverticulitis with phlegmonous changes - Afebrile with stable vitals - Wbc 5.6 - General surgery consultDr. Lencho f/u recs - GI consult Dr. Latham f/u recs - c/w Zosyn 3.375 mg q 6 hr - NPO - anti-emetics - Pain management with morphine 2 mg and 4 mg - c/w LR @ 125 cc/hr - f/u labs Mild intermittent asthma - c/w symbicort - duoneb q4h prn Hx positive PPD - CXR on 01/23/18 : no acute cardiopulmonary disease - Will resume INH 300 mg po daily with pyridoxine 50 mg daily when diet is advanced DVT prophylaxis - Lovenox 40 mg sc daily Case discussed with Dr Spencer Pizarro PGY 2 <Rocio Palmer - Last Filed: 05/12/18 16:17> Objective - Vital Signs/Intake and Output Vital Signs (last 24 hours): Temp Pulse Resp BP Pulse Ox 97.9 F 69 20 126/74 97 05/12/18 15:35 05/12/18 15:35 05/12/18 15:35 05/12/18 15:35 05/12/18 15:35 - Medications Medications: Current Medications Acetaminophen (Tylenol 325mg Tab) 650 mg PO Q6 PRN PRN Reason: Headache Last Admin: 05/12/18 08:39 Dose: 650 mg Albuterol/Ipratropium (Duoneb 3 Mg/0.5 Mg (3 Ml) Ud) 3 ml INH RQ4 PRN PRN Reason: Shortness of Breath Enoxaparin Sodium (Lovenox) 40 mg SC DAILY@1999 [facility]; Protocol Last Admin: 05/11/18 21:35 Dose: 40 mg Lactated Ringer's (Lactated Ringer's) 1,000 mls @ 125 mls/hr IV .Q8H [facility] Last Admin: 05/12/18 12:28 Dose: 125 mls/hr Piperacillin Sod/Tazobactam (Sod 3.375 gm/ Sodium Chloride) 100 mls @ 100 mls/hr IVPB Q6 [facility]; Protocol Last Admin: 05/12/18 10:38 Dose: 100 mls/hr Ketorolac Tromethamine (Toradol) 30 mg IVP Q8 PRN PRN Reason: Headache Stop: 05/12/18 23:59 Last Admin: 05/12/18 12:37 Dose: 30 mg Morphine Sulfate (Morphine) 2 mg IVP Q4 PRN PRN Reason: Pain, moderate (4-7) Morphine Sulfate (Morphine) 4 mg IVP Q4 PRN PRN Reason: Pain, severe (8-10) Last Admin: 05/11/18 08:44 Dose: 4 mg Ondansetron HCl (Zofran Inj) 4 mg IVP Q6 PRN PRN Reason: Nausea/Vomiting Last Admin: 05/12/18 08:38 Dose: 4 mg Pantoprazole Sodium (Protonix Inj) 40 mg IVP DAILY [facility] Last Admin: 05/12/18 08:39 Dose: 40 mg Fluticasone/Salmeterol (Advair Diskus 250/50) 1 puff IH Q12 [facility] Last Admin: 05/12/18 08:45 Dose: Not Given - Labs Labs: 05/12/18 05:20 05/12/18 05:20 Attending/Attestation - Attestation I have personally seen and examined this patient.: Yes I have fully participated in the care of the patient.: Yes I have reviewed all pertinent clinical information, including history, physical exam and plan: Yes Notes (Text): Acute Diverticulitis with Microperforation Mild Intermittent Asthma - cont IV Zosyn - Surgery consulted- rec to keep NPO - Pain mgt - IVF hydration - cont steroid inhaler.
[2018-05-12] MEDS: Potassium CL 10mEq/100ml 100 ML IVPB SCH ×2 (15:23→18:06)
[2018-05-12] MEDS: Enoxaparin 40 mg Syringe SC SCH (20:12)
[2018-05-13] MEDS: Lactated Ringer's 1,000 ML IV SCH (04:06)
[2018-05-13] MEDS: Piperacillin/Tazobact 3.375 GM in Sodium Chloride 0.9% 100 ML IVPB SCH ×4 (04:07→21:01)
[2018-05-13 06:51] LABS: HEMOGLOBIN 12.9 g/dL (12.0-16.0); MEAN CELL VOLUME 90.2 fl (81.0-99.0); MEAN CORPUSCULAR HGB CONC 33.3 g/dL (33.0-37.0); RBC 4.29 Mil/uL (3.80-5.20); RED CELL DISTRIBUTION WIDTH 13.6 % (11.5-14.5); WHITE BLOOD COUNT 5.3 K/uL (4.8-10.8)
[2018-05-13 07:47] LABS: ALB/GLOB RATIO 1.1 (1.0-2.1); ALBUMIN 3.4 g/dL (3.5-5.0); ALT/SGPT 38 U/L (9-52); AST/SGOT 34 U/L (14-36); BLOOD UREA NITROGEN 11 mg/dl (7-17); CALCIUM 8.9 mg/dL (8.4-10.2); GFR NON-AFRICAN AMERICAN > 60
[2018-05-13] MEDS: Fluticasone-Salmeterol 250-50mcg Diskus IH SCH ×2 (09:35→20:12)
--- NOTE | 2018-05-13 10:32 | CP.PCM.PN ---
Subjective - Date & Time of Evaluation Date of Evaluation: 05/13/18 Time of Evaluation: 07:00 - Subjective Subjective: GENERAL SURGERY PROGRESS NOTE FOR DR. LANTIGUA Patient seen and examined at bedside. She reports that her abdominal pain is better today. Does report a headache. Denies nausea or vomiting. She is passing flatus and had a BM yesterday. Objective - Vital Signs/Intake and Output Vital Signs (last 24 hours): Temp Pulse Resp BP Pulse Ox 97.8 F 65 19 123/75 97 05/13/18 08:02 05/13/18 08:02 05/13/18 08:02 05/13/18 08:02 05/13/18 08:02 - Medications Medications: Current Medications Acetaminophen (Tylenol 325mg Tab) 650 mg PO Q6 PRN PRN Reason: Headache Last Admin: 05/12/18 23:27 Dose: 650 mg Albuterol/Ipratropium (Duoneb 3 Mg/0.5 Mg (3 Ml) Ud) 3 ml INH RQ4 PRN PRN Reason: Shortness of Breath Enoxaparin Sodium (Lovenox) 40 mg SC DAILY@2000 [facility]; Protocol Last Admin: 05/12/18 20:12 Dose: 40 mg Lactated Ringer's (Lactated Ringer's) 1,000 mls @ 125 mls/hr IV .Q8H [facility] Last Admin: 05/13/18 04:06 Dose: Not Given Piperacillin Sod/Tazobactam (Sod 3.375 gm/ Sodium Chloride) 100 mls @ 100 ml s/hr IVPB Q6 [facility]; Protocol Last Admin: 05/13/18 09:35 Dose: 100 mls/hr Morphine Sulfate (Morphine) 2 mg IVP Q4 PRN PRN Reason: Pain, moderate (4-7) Morphine Sulfate (Morphine) 4 mg IVP Q4 PRN PRN Reason: Pain, severe (8-10) Last Admin: 05/11/18 08:44 Dose: 4 mg Ondansetron HCl (Zofran Inj) 4 mg IVP Q6 PRN PRN Reason: Nausea/Vomiting Last Admin: 05/12/18 08:38 Dose: 4 mg Pantoprazole Sodium (Protonix Inj) 40 mg IVP DAILY [facility] Last Admin: 05/12/18 08:39 Dose: 40 mg Fluticasone/Salmeterol (Advair Diskus 250/50) 1 puff IH Q12 [facility] Last Admin: 05/13/18 09:35 Dose: 1 puff - Labs Labs: 05/13/18 05:50 05/13/18 07:00 - Constitutional Appears: Non-toxic, No Acute Distress - Head Exam Head Exam: ATRAUMATIC, NORMAL INSPECTION - Eye Exam Eye Exam: EOMI, Normal appearance - Respiratory Exam Respiratory Exam: NORMAL BREATHING PATTERN. absent: Respiratory Distress - Cardiovascular Exam Cardiovascular Exam: +S1, +S2 - GI/Abdominal Exam GI & Abdominal Exam: Soft, Tenderness (mild LLQ tenderness (improved from yesterday)). 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 Lencho Lynne PGY-4
--- NOTE | 2018-05-13 12:32 | CP.PCM.PN ---
<Benjamin Boateng - Last Filed: 05/13/18 12:32> Subjective - Date & Time of Evaluation Date of Evaluation: 05/13/18 Time of Evaluation: 07:15 - Subjective Subjective: Patient seen and examined at bedside today. No acute event overnight. Patient slept well, Abdominal pain have resolved. She denies having nausea or vomiting. She is tolerating liquid diet. Denies fever/chills, CP, SOB, diarrhea, constipation, incontinence, urinary symptoms. Objective - Vital Signs/Intake and Output Vital Signs (last 24 hours): Temp Pulse Resp BP Pulse Ox 97.8 F 65 19 123/75 97 05/13/18 08:02 05/13/18 08:02 05/13/18 08:02 05/13/18 08:02 05/13/18 08:02 - Medications Medications: Current Medications Acetaminophen (Tylenol 325mg Tab) 650 mg PO Q6 PRN PRN Reason: Headache Last Admin: 05/12/18 23:27 Dose: 650 mg Albuterol/Ipratropium (Duoneb 3 Mg/0.5 Mg (3 Ml) Ud) 3 ml INH RQ4 PRN PRN Reason: Shortness of Breath Enoxaparin Sodium (Lovenox) 40 mg SC DAILY@2000 [facility]; Protocol Last Admin: 05/12/18 20:12 Dose: 40 mg Lactated Ringer's (Lactated Ringer's) 1,000 mls @ 125 mls/hr IV .Q8H [facility] Last Admin: 05/13/18 04:06 Dose: Not Given Piperacillin Sod/Tazobactam (Sod 3.375 gm/ Sodium Chloride) 100 mls @ 100 mls/hr IVPB Q6 [facility]; Protocol Last Admin: 05/13/18 09:35 Dose: 100 mls/hr Morphine Sulfate (Morphine) 2 mg IVP Q4 PRN PRN Reason: Pain, moderate (4-7) Ondansetron HCl (Zofran Inj) 4 mg IVP Q6 PRN PRN Reason: Nausea/Vomiting Last Admin: 05/12/18 08:38 Dose: 4 mg Pantoprazole Sodium (Protonix Inj) 40 mg IVP DAILY [facility] Last Admin: 05/13/18 09:36 Dose: 40 mg Fluticasone/Salmeterol (Advair Diskus 250/50) 1 puff IH Q12 [facility] Last Admin: 05/13/18 09:35 Dose: 1 puff - Labs Labs: 05/13/18 05:50 05/13/18 07:00 - Constitutional Appears: Well, Non-toxic, No Acute Distress - Head Exam Head Exam: ATRAUMATIC, NORMAL INSPECTION, NORMOCEPHALIC - Eye Exam Eye Exam: EOMI, Normal appearance, PERRL Pupil Exam: NORMAL ACCOMODATION, PERRL - ENT Exam ENT Exam: Mucous Membranes Moist, Normal Exam - Neck Exam Neck Exam: Full ROM, Normal Inspection - Respiratory Exam Respiratory Exam: Clear to Ausculation Bilateral, NORMAL BREATHING PATTERN - Cardiovascular Exam Cardiovascular Exam: REGULAR RHYTHM, +S1, +S2 - GI/Abdominal Exam GI & Abdominal Exam: Soft, Normal Bowel Sounds - Extremities Exam Extremities Exam: Full ROM, Normal Capillary Refill, Normal Inspection - Back Exam Back Exam: NORMAL INSPECTION - Neurological Exam Neurological Exam: Alert, Awake, Oriented x3 - Psychiatric Exam Psychiatric exam: Normal Affect, Normal Mood - Skin Skin Exam: Dry, Intact, Normal Color, Warm Assessment and Plan - Assessment and Plan (Free Text) Assessment: 58 year old famale with PMHx of asthma, allergic rhinitis, 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 Patient was admitted for managment of diverticulitis. Plan: Acute diverticulitis -Improved, pain free, afebrile, no leukocytosis (5.3) -CBC/CMP normal - General surgery on case( Dr. Musa) - GI on case Dr. Latham, - Continue Zosyn 3.375 mg q 6 hr - Clear liquid as tolerated - anti-emetics - Pain management with morphine 2 mg and 4 mg - D/C LR Mild intermittent asthma - Continue symbicort - duoneb q4h prn Hx positive PPD - CXR on 01/23/18 : no acute cardiopulmonary disease - Will start INH 300 mg po daily with pyridoxine 50 mg daily DVT prophylaxis - Lovenox 40 mg sc daily <Rocio Palmer - Last Filed: 05/13/18 14:31> Objective - Vital Signs/Intake and Output Vital Signs (last 24 hours): Temp Pulse Resp BP Pulse Ox 97.8 F 65 19 123/75 97 05/13/18 08:02 05/13/18 08:02 05/13/18 08:02 05/13/18 08:02 05/13/18 08:02 - Medications Medications: Current Medications Acetaminophen (Tylenol 325mg Tab) 650 mg PO Q6 PRN PRN Reason: Headache Last Admin: 05/12/18 23:27 Dose: 650 mg Albuterol/Ipratropium (Duoneb 3 Mg/0.5 Mg (3 Ml) Ud) 3 ml INH RQ4 PRN PRN Reason: Shortness of Breath Enoxaparin Sodium (Lovenox) 40 mg SC DAILY@2000 [facility]; Protocol Last Admin: 05/12/18 20:12 Dose: 40 mg Piperacillin Sod/Tazobactam (Sod 3.375 gm/ Sodium Chloride) 100 mls @ 100 mls/hr IVPB Q6 [facility]; Protocol Last Admin: 05/13/18 09:35 Dose: 100 mls/hr Isoniazid (Niazid) 300 mg PO DAILY [facility]; Protocol Morphine Sulfate (Morphine) 2 mg IVP Q4 PRN PRN Reason: Pain, moderate (4-7) Ondansetron HCl (Zofran Inj) 4 mg IVP Q6 PRN PRN Reason: Nausea/Vomiting Last Admin: 05/12/18 08:38 Dose: 4 mg Pantoprazole Sodium (Protonix Inj) 40 mg IVP DAILY [facility] Last Admin: 05/13/18 09:36 Dose: 40 mg Pyridoxine HCl (Vitamin B6 50 Mg Tab) 50 mg PO DAILY [facility] Fluticasone/Salmeterol (Advair Diskus 250/50) 1 puff IH Q12 [facility] Last Admin: 05/13/18 09:35 Dose: 1 puff - Labs Labs: 05/13/18 05:50 05/13/18 07:00 Attending/Attestation - Attestation I have personally seen and examined this patient.: Yes I have fully participated in the care of the patient.: Yes I have reviewed all pertinent clinical information, including history, physical exam and plan: Yes Notes (Text): Acute Diverticulitis with Microperforation Mild Intermittent Asthma Hx of + PPD ( latent TB) - cont IV Zosyn - better today - will advance diet to Liquid diet -Surgery consulted- rec 1 more day of IV antibiotics in the hospital then d/c tomorrow on PO abx - GI ff up as outpt for Colonoscopy in 4-6 wks - cont INH , B6 - cont Advair and Albuterol prn
[2018-05-13] MEDS: Enoxaparin 40 mg Syringe SC SCH (20:12)
--- NOTE | 2018-05-13 20:14 | CP.PCM.PN ---
Subjective - Date & Time of Evaluation Date of Evaluation: 05/13/18 Time of Evaluation: 20:12 - Subjective Subjective: Patient with less abdominal pain. Tolerating clears. Objective - Vital Signs/Intake and Output Vital Signs (last 24 hours): Temp Pulse Resp BP Pulse Ox 97.7 F 66 18 128/76 97 05/13/18 16:14 05/13/18 16:14 05/13/18 16:14 05/13/18 16:14 05/13/18 16:14 - Medications Medications: Current Medications Acetaminophen (Tylenol 325mg Tab) 650 mg PO Q6 PRN PRN Reason: Headache Last Admin: 05/12/18 23:27 Dose: 650 mg Albuterol/Ipratropium (Duoneb 3 Mg/0.5 Mg (3 Ml) Ud) 3 ml INH RQ4 PRN PRN Reason: Shortness of Breath Enoxaparin Sodium (Lovenox) 40 mg SC DAILY@2000 [facility]; Protocol Last Admin: 05/12/18 20:12 Dose: 40 mg Piperacillin Sod/Tazobactam (Sod 3.375 gm/ Sodium Chloride) 100 mls @ 100 mls/ hr IVPB Q6 [facility]; Protocol Last Admin: 05/13/18 16:40 Dose: 100 mls/hr Isoniazid (Niazid) 300 mg PO DAILY [facility]; Protocol Last Admin: 05/13/18 14:40 Dose: 300 mg Morphine Sulfate (Morphine) 2 mg IVP Q4 PRN PRN Reason: Pain, moderate (4-7) Ondansetron HCl (Zofran Inj) 4 mg IVP Q6 PRN PRN Reason: Nausea/Vomiting Last Admin: 05/12/18 08:38 Dose: 4 mg Pantoprazole Sodium (Protonix Inj) 40 mg IVP DAILY [facility] Last Admin: 05/13/18 09:36 Dose: 40 mg Pyridoxine HCl (Vitamin B6 50 Mg Tab) 50 mg PO DAILY [facility] Last Admin: 05/13/18 14:40 Dose: 50 mg Fluticasone/Salmeterol (Advair Diskus 250/50) 1 puff IH Q12 [facility] Last Admin: 05/13/18 20:12 Dose: 1 puff - Labs Labs: 05/13/18 05:50 05/13/18 07:00 - Head Exam Head Exam: ATRAUMATIC - Eye Exam Eye Exam: Normal appearance Pupil Exam: PERRL - Neck Exam Neck Exam: Full ROM - Respiratory Exam Respiratory Exam: Clear to Ausculation Bilateral - Cardiovascular Exam Cardiovascular Exam: REGULAR RHYTHM - GI/Abdominal Exam GI & Abdominal Exam: Soft, Tenderness Additional comments: moderate LLQ tenderness Assessment and Plan (1) Diverticulitis large intestine Assessment & Plan: Clinically improving though tenderness not totally resolved. Continue abx. Status: Acute (2) Abdominal pain Status: Acute
[2018-05-14] MEDS: Piperacillin/Tazobact 3.375 GM in Sodium Chloride 0.9% 100 ML IVPB SCH ×2 (03:29→09:00)
[2018-05-14 07:24] LABS: HEMOGLOBIN 12.1 g/dL (12.0-16.0); MEAN CELL VOLUME 90.4 fl (81.0-99.0); MEAN CORPUSCULAR HEMOGLOBIN 30.1 pg (27.0-31.0); MEAN CORPUSCULAR HGB CONC 33.3 g/dL (33.0-37.0); RBC 4.02 Mil/uL (3.80-5.20); RED CELL DISTRIBUTION WIDTH 13.5 % (11.5-14.5)
--- NOTE | 2018-05-14 08:08 | CP.PCM.PN ---
Subjective - Date & Time of Evaluation Date of Evaluation: 05/14/18 Time of Evaluation: 12:22 - Subjective Subjective: General Surgery Progress note for Dr. Musa Patient seen and examined at bedside. She reports that her abdominal pain is better today. Denies nausea or vomiting. She is passing flatus and had a BM yesterday. No acute distress noted. Denies any discomfort or pain at this time. Objective - Vital Signs/Intake and Output Vital Signs (last 24 hours): Temp Pulse Resp BP Pulse Ox 98 F 76 18 120/70 96 05/13/18 23:54 05/13/18 23:54 05/13/18 23:54 05/13/18 23:54 05/13/18 23:54 - Medications Medications: Current Medications Acetaminophen (Tylenol 325mg Tab) 650 mg PO Q6 PRN PRN Reason: Headache Last Admin: 05/12/18 23:27 Dose: 650 mg Albuterol/Ipratropium (Duoneb 3 Mg/0.5 Mg (3 Ml) Ud) 3 ml INH RQ4 PRN PRN Reason: Shortness of Breath Enoxaparin Sodium (Lovenox) 40 mg SC DAILY@2000 [facility]; Protocol Last Admin: 05/13/18 20:12 Dose: 40 mg Piperacillin Sod/Tazobactam (Sod 3.375 gm/ Sodium Chloride) 100 mls @ 100 mls/hr IVPB Q6 [facility]; Protocol Last Admin: 05/14/18 03:29 Dose: 100 mls/hr Isoniazid (Niazid) 300 mg PO DAILY [facility]; Protocol Last Admin: 05/13/18 14:40 Dose: 300 mg Morphine Sulfate (Morphine) 2 mg IVP Q4 PRN PRN Reason: Pain, moderate (4-7) Ondansetron HCl (Zofran Inj) 4 mg IVP Q6 PRN PRN Reason: Nausea/Vomiting Last Admin: 05/12/18 08:38 Dose: 4 mg Pantoprazole Sodium (Protonix Inj) 40 mg IVP DAILY [facility] Last Admin: 05/13/18 09:36 Dose: 40 mg Pyridoxine HCl (Vitamin B6 50 Mg Tab) 50 mg PO DAILY [facility] Last Admin: 05/13/18 14:40 Dose: 50 mg Fluticasone/Salmeterol (Advair Diskus 250/50) 1 puff IH Q12 [facility] Last Admin: 05/13/18 20:12 Dose: 1 puff - Labs Labs: 05/14/18 06:50 05/13/18 07:00 - Constitutional Appears: Well, Non-toxic, No Acute Distress - Head Exam Head Exam: ATRAUMATIC, NORMOCEPHALIC - Eye Exam Eye Exam: Normal appearance - ENT Exam ENT Exam: Mucous Membranes Moist - Respiratory Exam Respiratory Exam: Clear to Ausculation Bilateral. 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 Lencho Mendez, PGY1
[2018-05-14] MEDS: Fluticasone-Salmeterol 250-50mcg Diskus IH SCH (08:51)
[2018-05-14 08:56] VITALS: BP 113/69; PULSE 69; RESP 20; TEMP 98.1
[2018-05-14 09:13] LABS: BLOOD UREA NITROGEN 8 mg/dl (7-17); GFR NON-AFRICAN AMERICAN > 60
[2018-05-14 11:08] VITALS: O2SAT 98
--- NOTE | 2018-05-14 14:53 | CP.PCM.DIS ---
Provider - Provider Date of Admission: 05/11/18 03:50 Attending physician: Curtis House Primary care physician: Dr. Segura Consults: 05/11/18 03:54 Gastroenterology Consult Stat Comment: Consulting Provider: Maykel Latham Consulting Physician: Maykel Latham Reason for Consult: divberticulitis 05/11/18 03:55 Surgery [General Surgery Consult] Stat Comment: Consulting Provider: Tremaine Musa Consulting Physician: Tremaine Musa Reason for Consult: divertic Time Spent in preparation of Discharge (in minutes): 20 Hospital Course - Lab Results Lab Results: Micro Results 05/11/18 05:40 Blood Blood Culture - Preliminary NO GROWTH AFTER 3 DAYS 05/11/18 05:10 Blood Blood Culture - Preliminary NO GROWTH AFTER 3 DAYS 05/11/18 00:40 Urine,Clean Catch Urine Culture - Final No Growth (<1,000 CFU/ML) Most Recent Lab Values WBC 4.0 K/uL (4.8-10.8) L 05/14/18 06:50 RBC 4.02 Mil/uL (3.80-5.20) 05/14/18 06:50 Hgb 12.1 g/dL (12.0-16.0) 05/14/18 06:50 Hct 36.4 % (34.0-47.0) 05/14/18 06:50 MCV 90.4 fl (81.0-99.0) 05/14/18 06:50 MCH 30.1 pg (27.0-31.0) 05/14/18 06:50 MCHC 33.3 g/dL (33.0-37.0) 05/14/18 06:50 RDW 13.5 % (11.5-14.5) 05/14/18 06:50 Plt Count 187 K/uL (130-400) 05/14/18 06:50 MPV 8.8 fl (7.2-11.7) 05/12/18 05:20 Neut % (Auto) 61.5 % (50.0-75.0) 05/12/18 05:20 Lymph % (Auto) 28.5 % (20.0-40.0) 05/12/18 05:20 [place] % (Auto) 9.6 % (0.0-10.0) 05/12/18 05:20 Eos % (Auto) 0.3 % (0.0-4.0) 05/12/18 05:20 Baso % (Auto) 0.1 % (0.0-2.0) 05/12/18 05:20 Neut # (Auto) 3.4 K/uL (1.8-7.0) 05/12/18 05:20 Lymph # (Auto) 1.6 K/uL (1.0-4.3) 05/12/18 05:20 [place] # (Auto) 0.5 K/uL (0.0-0.8) 05/12/18 05:20 Eos # (Auto) 0.0 K/uL (0.0-0.7) 05/12/18 05:20 Baso # (Auto) 0.0 K/uL (0.0-0.2) 05/12/18 05:20 Sodium 140 mmol/l (132-148) 05/14/18 06:50 Potassium 4.0 MMOL/L (3.6-5.0) 05/14/18 06:50 Chloride 106 mmol/L (98-107) 05/14/18 06:50 Carbon Dioxide 28 mmol/L (22-30) 05/14/18 06:50 Anion Gap 10 (10-20) 05/14/18 06:50 BUN 8 mg/dl (7-17) 05/14/18 06:50 Creatinine 0.7 mg/dl (0.7-1.2) 05/14/18 06:50 Est GFR ( Amer) > 60 05/14/18 06:50 Est GFR (Non-Af Amer) > 60 05/14/18 06:50 Random Glucose 107 mg/dL (65-105) H 05/14/18 06:50 Calcium 9.0 mg/dL (8.4-10.2) 05/14/18 06:50 Phosphorus 3.4 mg/dl (2.5-4.5) 05/13/18 07:00 Magnesium 2.1 MG/DL (1.6-2.3) 05/13/18 07:00 Total Bilirubin 0.5 mg/dl (0.2-1.3) 05/13/18 07:00 AST 34 U/L (14-36) 05/13/18 07:00 ALT 38 U/L (9-52) 05/13/18 07:00 Alkaline Phosphatase 76 U/L (38-126) 05/13/18 07:00 Total Protein 6.4 G/DL (6.3-8.2) 05/13/18 07:00 Albumin 3.4 g/dL (3.5-5.0) L 05/13/18 07:00 Globulin 3.0 gm/dL (2.2-3.9) 05/13/18 07:00 Albumin/Globulin Ratio 1.1 (1.0-2.1) 05/13/18 07:00 Urine Color Straw (YELLOW) 05/11/18 00:40 Urine Clarity Clear (Clear) 05/11/18 00:40 Urine pH 8.0 (5.0-8.0) 05/11/18 00:40 Ur Specific [place] 1.006 (1.003-1.030) 05/11/18 00:40 Urine Protein Negative mg/dL (NEGATIVE) 05/11/18 00:40 Urine Glucose (UA) Neg mg/dL (NEGATIVE) 05/11/18 00:40 Urine Ketones Negative mg/dL (NEGATIVE) 05/11/18 00:40 Urine Blood Negative (NEGATIVE) 05/11/18 00:40 Urine Nitrate Negative (NEGATIVE) 05/11/18 00:40 Urine Bilirubin Negative (NEGATIVE) 05/11/18 00:40 Urine Urobilinogen 0.2-1.0 mg/dL (0.2-1.0) 05/11/18 00:40 Ur Leukocyte Esterase Small [place]/uL (Negative) 05/11/18 00:40 Urine RBC (Auto) 1 /hpf (0-3) 05/11/18 00:40 Urine Microscopic WBC 6 /hpf (0-5) H 05/11/18 00:40 Ur Squamous Epith Cells 2 /hpf (0-5) 05/11/18 00:40 Urine Bacteria Occ (<OCC) H 05/11/18 00:40 - Hospital Course Hospital Course: 58 year old female with PMHx of mild intermittent asthma, allergic rhinitis, 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 Surgery and GI were consulted She was started on Zosyn IV and liquid diet . Patient clinically showed improvement . She remained hemodynamically stable, afebrile and painm resolved . Able to tolerate softy diet Will d/c patient yariel alma PO cipro and Flagyl for 1 week Follow up with GI for screening colonoscopy after 4 - 6 weeks as outpatient Follow up with [facility] Continue soft low fiber diet for 1 more week than increase fiber intake Dx 1.Acute sigmoid diverticulitis 2.Mild intermittent asthma 3.Hx positive PPD-- on INH and Pyrodoxine Discharge Exam - Head Exam Head Exam: ATRAUMATIC, NORMOCEPHALIC - Eye Exam Eye Exam: EOMI, Normal appearance, PERRL Pupil Exam: NORMAL ACCOMODATION - ENT Exam ENT Exam: Mucous Membranes Moist, Normal Exam - Neck Exam Neck exam: Full Rom, Normal Inspection - Respiratory Exam Respiratory Exam: Clear to PA & Lateral, NORMAL BREATHING PATTERN. absent: Rales, Rhonchi, Wheezes - Cardiovascular Exam Cardiovascular Exam: REGULAR RHYTHM, RRR, +S1, +S2. absent: JVD - GI/Abdominal Exam GI & Abdominal Exam: Normal Bowel Sounds, Soft. absent: Distended, Guarding, Rebound, Tenderness - Rectal Exam Rectal Exam: Deferred - Extremities Exam Extremities exam: normal capillary refill, normal inspection, pedal pulses present - Back Exam Back exam: NORMAL INSPECTION - Neurological Exam Neurological exam: Alert, CN II-XII Intact, Oriented x3, Reflexes Normal - Psychiatric Exam Psychiatric exam: Normal Affect, Normal Mood - Skin Skin Exam: Dry, Intact, Normal Color, Warm Discharge Plan - Discharge Medications Prescriptions: Ciprofloxacin [Cipro] 500 mg PO Q12 14 Days #28 tab Lactobacillus Acidophilus [Acidophilus Lactobacilli] 1 each PO DAILY #14 capsule metroNIDAZOLE [Flagyl] 500 mg PO Q12 14 Days #28 tab - Follow Up Plan Condition: STABLE Disposition: HOME/ ROUTINE Patient education suggested?: Yes Instructions: How to Wash Your Hands Properly, Low Fiber Diet, Diverticulitis (DC) Additional Instructions: hacer nate con [place] doctor primario dentro 1 semana colonoscopia despues de 6 semanas-hacer nate con gastroenterologo Referrals: Maykel Latham MD [Staff Provider] - Tremaine Musa MD [Staff Provider] -
== END 2018-05-14 12:56 | disposition home or self-care (01) | DRG 244 ==
LOC: H.ER 20:40 → H.ERHOLD 05-11 03:50 → H.MEDSURG1 05-11 06:28
PROVIDERS: ADMIT Internal Medicine; ATTEND Internal Medicine
DX: K57.20 Diverticulitis of large intestine with perforation and abscess without bleeding (principal); N39.0 Urinary tract infection, site not specified; E78.5 Hyperlipidemia, unspecified; H40.9 Unspecified glaucoma; J45.20 Mild intermittent asthma, uncomplicated; K21.9 Gastro-esophageal reflux disease without esophagitis; R76.11 Nonspecific reaction to tuberculin skin test without active tuberculosis; K40.20 Bilateral inguinal hernia, without obstruction or gangrene, not specified as recurrent; K59.00 Constipation, unspecified